=== PATIENT | male | born 1980 | race Caucasian/White ===

== ENCOUNTER 2017-01-20 18:05 | Emergency (ER) | payer OTHER ==
[2017-01-20 18:22] VITALS: BP 130/86; PULSE 94; RESP 18; TEMP 98.2
--- NOTE | 2017-01-20 18:48 | XR ---
EXAMINATION TYPE: XR hand complete RT DATE OF EXAM: 01/20/2017 CLINICAL HISTORY: pain TECHNIQUE: Frontal, lateral and oblique images of the right hand are obtained. COMPARISON: None. FINDINGS: There is no acute fracture/dislocation evident. The joint spaces appear within normal limi ts. The overlying soft tissue fails to demonstrate evidence for radiopaque foreign body. IMPRESSION: There is no acute fracture or dislocation ICD 10 NO FRACTURE, INITIAL EVALUATION
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
--- NOTE | 2017-01-21 07:09 | CDI ---
Documentation Clarification OP Dear Eloy King PA-C Please do addendum to ED report for missing Physical examination. Thank you, Rosaline Ayala Utility Hand If you have any questions, please contact Warehouse Operations Associate at [phone] [facility]
== END 2017-01-20 19:36 | disposition home or self-care (01) ==
LOC: EC 18:05
DX: S00.81XA Abrasion of other part of head, initial encounter (principal); Z86.14 Personal history of Methicillin resistant Staphylococcus aureus infection; F17.200 Nicotine dependence, unspecified, uncomplicated; Y04.2XXA Assault by strike against or bumped into by another person, initial encounter
CPT/HCPCS: 70450; 70486; 72125; 99285

== ENCOUNTER 2022-02-19 20:06 | Inpatient (IN) | payer MEDICAID, OTHER ==
[2022-02-19 21:59] LABS: Basophils # (A) 0.1 k/uL (0-0.2); Basophils % (A) 1 %; Eosinophils # (A) 0.1 k/uL (0-0.7); Eosinophils % (A) 2 %; HCT 41.8 % (39.0-53.0); HGB 14.4 gm/dL (13.0-17.5); Lymphocytes # (A) 1.7 k/uL (1.0-4.8); Lymphocytes % (A) 36 %; MCH 35.5 pg (25.0-35.0); MCHC 34.4 g/dL (31.0-37.0); MCV 103.1 fL (80.0-100.0); Macrocytosis Slight; Mean Platelet Volume 8.1; Monocytes # (A) 0.2 k/uL (0-1.0); Monocytes % (A) 4 %; Neutrophils # (A) 2.6 k/uL (1.3-7.7); Neutrophils % (A) 55 %; Platelet Count 132 k/uL (150-450); RBC 4.05 m/uL (4.30-5.90); RDW 12.5 % (11.5-15.5); WBC 4.8 k/uL (3.8-10.6)
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
[2022-02-19 22:23] LABS: ALT 72 U/L (4-49); AST 79 U/L (17-59); African American GFR (CKD) >90 (>60 ml/min/1.73 sqM); Albumin 4.9 g/dL (3.5-5.0); Alkaline Phosphatase 67 U/L (38-126); Anion Gap 14 mmol/L; Blood Urea Nitrogen 16 mg/dL (9-20); Calcium 8.6 mg/dL (8.4-10.2); Carbon Dioxide 23 mmol/L (22-30); Chloride 108 mmol/L (98-107); Glucose 100 mg/dL (74-99); Non-African American GFR(CKD) >90 (>60 ml/min/1.73 sqM); Potassium 4.3 mmol/L (3.5-5.1); Sodium 145 mmol/L (137-145); Total Bilirubin 0.4 mg/dL (0.2-1.3); Total Protein 7.5 g/dL (6.3-8.2)
[2022-02-19 22:47] LABS: Alcohol 458 mg/dL
[2022-02-19 23:39] LABS: Acetaminophen <10.0 ug/mL; Salicylate <1.0 mg/dL
[2022-02-20] MEDS ORDERED: LORazepam 0.5 MG TAB PO PRN (12:23)
[2022-02-20] MEDS ORDERED: THIAMINE 100 MG/ML 2 ML VIAL IM STA (12:23)
[2022-02-20] MEDS ORDERED: LORazepam 1 MG TAB PO PRN ×2 (12:23→14:39)
[2022-02-20] MEDS: LORazepam 1 MG TAB PO PRN ×2 (17:35→21:31)
[2022-02-20] MEDS ORDERED: ACETAMINOPHEN TAB 325 MG TAB PO PRN (19:32)
[2022-02-20] MEDS ORDERED: MAG HYDROX/AL HYDROX/SIMETH 30 ML CUP PO PRN (19:32)
[2022-02-20] MEDS ORDERED: HALOPERIDOL LACTATE 5 MG/ML 1 ML VIAL IM PRN (19:32)
[2022-02-20] MEDS ORDERED: MAGNESIUM HYDROXIDE 2,400 MG/10 ML CUP PO PRN (19:32)
[2022-02-20] MEDS ORDERED: LORazepam 1 MG/0.5 ML VIAL IM PRN (19:36)
[2022-02-20] MEDS ORDERED: haloperidoL 5 MG TAB PO PRN (19:37)
[2022-02-20] MEDS ORDERED: NAPROXEN 250 MG TAB PO PRN (19:39)
[2022-02-20] MEDS: chlordiazePOXIDE 25 MG CAP PO SCH (21:31)
[2022-02-21] MEDS: LOSARTAN 50 MG TAB PO SCH (10:49)
[2022-02-21] MEDS: chlordiazePOXIDE 25 MG CAP PO SCH ×3 (10:49→20:02)
[2022-02-21] MEDS: NICOTINE 14MG/24HR PATCH TRANSDERM SCH (10:49)
[2022-02-21] MEDS: THIAMINE 100 MG TAB PO SCH (10:49)
[2022-02-21] MEDS: BACLOFEN 10 MG TAB PO PRN (15:31)
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
[2022-02-21] MEDS: MIRTAZAPINE 15 MG TAB PO SCH (20:02)
[2022-02-22] MEDS: LORazepam 1 MG TAB PO PRN ×3 (02:42→21:01)
[2022-02-22] MEDS: LOSARTAN 50 MG TAB PO SCH (09:21)
[2022-02-22] MEDS: THIAMINE 100 MG TAB PO SCH (09:21)
[2022-02-22] MEDS: BACLOFEN 10 MG TAB PO PRN (09:21)
[2022-02-22] MEDS: chlordiazePOXIDE 25 MG CAP PO SCH ×3 (09:21→20:13)
[2022-02-22] MEDS: NICOTINE 14MG/24HR PATCH TRANSDERM SCH (09:21)
--- NOTE | 2022-02-22 15:00 | P.MDCNMH ---
History of Present Illness H&P Date: 02/21/22 Chief Complaint: Suicidal ideation Patient is a 42-year-old male with a known history of hypertension, borderline personality disorder and ADHD and daily alcohol use about 3-4 beers and daily smoking 1 pack per day was brought to ER, he was petitioned by his . Apparently patient has been drinking more yesterday and concerned about harming himself. Patient was petitioned by his and was brought to the hospital. Otherwise patient denied any complaints of chest pain or shortness of breath. No nausea vomiting or abdominal pain or diarrhea. No cough or sputum p roduction. Denied any recent illnesses. Laboratory data showed WBC 4.8, hemoglobin 14.4 and platelets 132 Sodium 140, Potassium 4.3 chloride 108 bicarb is 23 BUN 16 and creatinine 0.71, AST 17 ALT 72 alk phos 67 and serum alcohol level is 458 Roberts virus PCR not detected. Review of Systems Constitutional: Patient denies any fever or chills . No generalized weakness or weight loss. Abdomen: Patient denied nausea vomiting and diarrhea and abdominal pain. Cardiovascular: Patient denies any chest pain or short of breath no palpitations. Respiratory: patient denied any cough is from production. No shortness of breath Neurologic: Patient denied any numbness or tingling headache. Musculoskeletal: Patient denies any complaints of joint swelling or deformity. Skin: Negative Psychiatric: Negative Endocrine: No heat or cold intolerance. No recent weight gain. Genitourinary: No dysuria or hematuria. All other 14 point ROS negative except the above Past Medical History Additional Past Medical History / Comment(s): BORDERLINE PERSONALITY DISORDER, ADHD History of Any Multi-Drug Resistant Organisms: None Reported, MRSA MDRO Source:: R hand Past Surgical History: Orthopedic Surgery Additional Past Surgical History / Comment(s): lap knee surgery on right knee Past Anesthesia/Blood Transfusion Reactions: No Reported Reaction Past Psychological History: ADD/ADHD, Anxiety Past Alcohol Use History: Daily Past Drug Use History: None Reported - Past Family History Mother Family Medical History: CVA/TIA, Hypertension Medications and Allergies Home Medications Medication Instructions Recorded Confirmed Type Baclofen [Lioresal] 10 mg PO TID PRN 02/20/22 02/20/22 History Losartan Potassium [Cozaar] 100 mg PO DAILY 02/20/22 02/20/22 History Naproxen [Naprosyn] 500 mg PO BID PRN 02/20/22 02/20/22 History Vitamin D3 1250mcg 1,250 mcg PO QMONTHLY 02/20/22 02/20/22 History Allergies Allergy/AdvReac Type Severity Reaction Status Date / Time No Known Allergies Allergy Verified 02/20/22 10:14 Physical Exam Vitals: Vital Signs Temp Pulse Resp BP Pulse Ox 02/21/22 09:49 98.4 F 63 131/76 98 02/20/22 20:29 98 F 95 18 186/86 97 Intake and Output 02/20/22 02/21/22 02/21/22 22:59 06:59 14:59 Other: Weight 62.596 kg PHYSICAL EXAMINATION: Patient is lying in the bed comfortably, no acute distress, awake alert and oriented.. HEENT: Normocephalic. Neck is supple. Pupils reactive. Nostrils clear. Oral cavity is moist. Neck reveals no JVD, carotid bruits, or thyromegaly. CHEST EXAMINATION: Trachea is central. Symmetrical expansion. Lung gilmore clear to auscultation and percussion. CARDIAC: Normal S1, S2 with no gallops. No murmurs ABDOMEN: Soft. Bowel sounds normal. No organomegaly. No abdominal bruits. Extremities: reveal no edema. No clubbing or cyanosis Neurologically awake, alert, oriented x3 with well-coordinated movements. No focal deficits noted Skin: No rash or skin lesions. Psychiatric: Coperative. Nonsuicidal Musculoskeletal: No joint swelling or deformity. Normal range of motion. Cranial Nerve Examination - Cranial Nerves Cranial Nerve I- Olfactory: Intact Cranial Nerve II- Optic: Intact Cranial Nerve III- Oculomotor: Intact Cranial Nerve IV- Trochlear: Intact Cranial Nerve V- Trigeminal: Intact Cranial Nerve - Abducens: Intact Cranial Nerve VII- Facial: Intact Cranial Nerve VIII- Auditory: Intact Cranial Nerve IX- Glossopharyngeal: Intact Cranial Nerve X- Vagus: Intact Cranial Nerve XI- Accessory: Intact Cranial Nerve XII- Hypoglossal: Intact Results CBC & Chem 7: 02/19/22 21:36 02/19/22 21:36 Assessment and Plan Assessment: Depression with suicidal ideation. Possible alcohol induced Acute alcohol intoxication and daily alcohol use Ongoing nicotine addiction History of cocaine use Hypertension. Controlled with medication. DVT prophylaxis with atrial fibrillation Plan: Patient will be continued on blood pressure medication losartan 100 mg daily. Continue with current psychiatric management and plan. Continue with alcohol withdrawal protocol and follow closely. Smoking cessation and alcohol abstinence has been counseled extensively. We'll continue to follow closely and further recommendations based on the clinical course. Thank you for your consult. Time with Patient: Greater than 30
[2022-02-22] MEDS: MIRTAZAPINE 15 MG TAB PO SCH (20:13)
[2022-02-22] MEDS ORDERED: MIRTAZAPINE 15 MG TAB PO STA (20:50)
--- NOTE | 2022-02-22 23:02 | P.PN ---
Progress Note - Text Progress Note Date: 02/22/22 Interval history: Patient was seen wandering the hallways and was directable and agreeable to speak with marine underwriter. He reports improved mood today, but reports fair sleep with difficulty falling and staying asleep. His alcohol withdrawal symptoms are controlled with Lirbium taper. Vitals reviewed and are stable. At this time patient denies any suicidal or homicidal ideation, intent or plan. Denies any auditory or visual hallucinations. Patient denies any side effects from the medications and has been compliant with meds. He is attending groups and participating. Mental status exam: General Appearance: Patient appears to be older than stated age. Patient appears to have multiple tattoos, fair hygiene. Behavior: Patient is calm without any agitated behavior. Speech: Patient's speech is fluent and non-pressured. Mood/Affect: Patient reports their mood is "great", affect is euthymic and stable. Suicidality/Homicidality: Patient denies having any homicidal ideation intent or plan. Denies any suicidal ideation, intent or plan. Perceptions: Patient denies any visual hallucinations and denies any auditory hallucinations. Though content/process: There is no evidence of any delusional thought content and thought process is linear and goal-directed. Memory and concentration: AOX3, grossly intact for the purposes of this session. Judgment and insight: improving mildly Assessment/Plan: Continue with current diagnosis. Patient continues to meet criteria for [facility] for symptom stabilization and safety. Remeron increased to 15 mg QHS starting tonight. He had already taken 7.5 mg and was given another 7.5 mg to make 15 mg tonight. Monitor for medication compliance and for any psychotropic medication side effects. Will continue to monitor ongoing response to treatment. Encouraged participation in milieu.
[2022-02-23] MEDS: LORazepam 1 MG TAB PO PRN (06:50)
[2022-02-23] MEDS: chlordiazePOXIDE 25 MG CAP PO SCH ×3 (08:39→20:49)
[2022-02-23] MEDS: THIAMINE 100 MG TAB PO SCH (08:39)
[2022-02-23] MEDS: LOSARTAN 50 MG TAB PO SCH (08:39)
[2022-02-23] MEDS: NICOTINE 14MG/24HR PATCH TRANSDERM SCH (08:40)
--- NOTE | 2022-02-23 13:29 | P.PN ---
Progress Note - Text Progress Note Date: 02/23/22 S&O: Patient was seen in rounds. He was admitted on 01/21/2022 since he was thought to be suicidal and depressed. Patient said he has been binge drinking and recently was drinking and playing his video games in his room. He said his thought he was drinking too much and a suicide risk and called the police who brought him to the ER. Patient insists that he is not suicidal, does not want to and wants to return to live with his . 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 He denies any previous psychiatric treatment. His psychiatric H&P shows the diagnosis of unspecified depressive disorder, rule out MDD versus alcohol-usman yesenia depressive disorder, alcohol use disorder severe with withdrawal cocaine use disorder in remission and tobacco use disorder. Patient said he does not do any drugs. This is a right ambulatory male with adequate hygiene he has multiple tattoos. He does not show any psychomotor agitation or retardation. His speech is spontaneous relevant and goal-directed. His mood is euthymic to cheerful and he became teary eyed when he was saying how much he misses his and wants to be with her. He said his has become his chief quality officer in a sarcastic way and he will stop drinking. He denies hallucinations and delusional thinking. He denies suicide and homicide thoughts and insists that he was never suicidal. His sensorium is clear A: Alcohol use disorder severe. P: Continue current medication for withdrawal symptoms therapy and supervision. His discharge plan will be discussed with him tomorrow's treatment team meeting.
[2022-02-23] MEDS ORDERED: MIRTAZAPINE 15 MG TAB PO SCH (21:00)
[2022-02-24 06:59] VITALS: BP 109/63; PULSE 58; RESP 14; TEMP 97.5
[2022-02-24] MEDS: NICOTINE 14MG/24HR PATCH TRANSDERM SCH (08:36)
[2022-02-24] MEDS: THIAMINE 100 MG TAB PO SCH (08:36)
[2022-02-24] MEDS: chlordiazePOXIDE 25 MG CAP PO SCH (08:36)
[2022-02-24] MEDS: LOSARTAN 50 MG TAB PO SCH (08:37)
--- NOTE | 2022-02-24 11:20 | P.DS ---
Providers Date of admission: 02/20/22 19:30 Expected date of discharge: 02/24/22 Attending physician: Hola Oro MD Consults: 02/20/22 20:33 Consult Physician Routine Consulting Provider: Orestes Diehl Consult Reason/Comments: h&P Do you want consulting provider notified?: Yes Primary care physician: Dallas Dean - Discharge Diagnosis(es) (1) Alcohol intoxication Current Visit: Yes Status: Acute Priority: Medium (2) Mood disorder Current Visit: Yes Status: Acute Priority: High Hospital Course: Patient had his psychiatric H&P done by and general medical H&P done by on 02/21/2022. After psychiatric examination patient was started on alcohol withdrawal protocol and on Remeron for depression. He also received individual therapy group therapy occupational and recreational therapy. He stated well on these and was feeling better. He did not have any withdrawal symptoms his mood got better and did not have any suicidal thoughts. He agreed to go back and stay with his not to drink alcohol anymore and continue with his job. He did not have any adverse effects from the medication he was taking. His progress and treatment plans were reviewed by the treatment team this morning and it was agreed to discharge him today. Assessment: 1. Mood disorder unspecified 2. Alcohol intoxication with severe use disorder. 3. History of sciatica. 4. Hypertension. 5. Vitamin D deficiency. Patient Condition at Discharge: Good Plan - Discharge Summary New Discharge Prescriptions: New Ergocalciferol [Vitamin D2 (1250 Mcg = 85192 Iu)] 1,250 mcg PO QMONTHLY 30 Days #1 cap Mag Hydrox/Al Hydrox/Simeth [Maalox] 30 ml PO Q4HR PRN ml PRN Reason: Gi Upset Naproxen [Naprosyn] 500 mg PO BID PRN tab PRN Reason: Pain Mirtazapine [Remeron] 15 mg PO HS 30 Days #30 tab Acetaminophen Tab [Tylenol] 650 mg PO Q4HR PRN tab PRN Reason: Pain/Discomfort Continue Losartan Potassium [Cozaar] 100 mg PO DAILY 30 Days #30 tab Naproxen [Naprosyn] 500 mg PO BID PRN 30 Days #50 tab PRN Reason: Pain Discontinued Baclofen [Lioresal] 10 mg PO TID PRN PRN Reason: Muscle Spasm Vitamin D3 1250mcg 1,250 mcg PO QMONTHLY Discharge Medication List Acetaminophen Tab [Tylenol] 650 mg PO Q4HR PRN tab 02/24/22 [Rx] Ergocalciferol [Vitamin D2 (1250 Mcg = 94464 Iu)] 1,250 mcg PO QMONTHLY 30 Days #1 cap 02/24/22 [Rx] Losartan Potassium [Cozaar] 100 mg PO DAILY 30 Days #30 tab 02/24/22 [Rx] Mag Hydrox/Al Hydrox/Simeth [Maalox] 30 ml PO Q4HR PRN ml 02/24/22 [Rx] Mirtazapine [Remeron] 15 mg PO HS 30 Days #30 tab 02/24/22 [Rx] Naproxen [Naprosyn] 500 mg PO BID PRN tab 02/24/22 [Rx] Naproxen [Naprosyn] 500 mg PO BID PRN 30 Days #50 tab 02/24/22 [Rx] Follow up Appointment(s)/Referral(s): Jermaine Haynes MD [Primary Care Provider] - 1-2 days
--- NOTE | 2022-02-25 14:55 | P.DS ---
Providers Date of admission: 02/20/22 19:30 Attending physician: Hola Oro MD Consults: 02/20/22 20:33 Consult Physician Routine Consulting Provider: Orestes Diehl Consult Reason/Comments: h&P Do you want consulting provider notified?: Yes Primary care physician: Dallas Archibald Charbal - Discharge Diagnosis(es) (1) Mood disorder Status: Acute Priority: High (2) Alcohol intoxication Status: Acute Priority: Medium Assessment: 1. Mood disorder unspecified 2. Alcohol intoxication with severe use disorder. 3. History of sciatica. 4. Hypertension. 5. Vitamin D deficiency. Patient Condition at Discharge: Good Plan - Discharge Summary New Discharge Prescriptions: New Ergocalciferol [Vitamin D2 (1250 Mcg = 80264 Iu)] 1,250 mcg PO QMONTHLY 30 Days #1 cap Mag Hydrox/Al Hydrox/Simeth [Maalox] 30 ml PO Q4HR PRN ml PRN Reason: Gi Upset Naproxen [Naprosyn] 500 mg PO BID PRN tab PRN Reason: Pain Mirtazapine [Remeron] 15 mg PO HS 30 Days #30 tab Acetaminophen Tab [Tylenol] 650 mg PO Q4HR PRN tab PRN Reason: Pain/Discomfort Continue Losartan Potassium [Cozaar] 100 mg PO DAILY 30 Days #30 tab Naproxen [Naprosyn] 500 mg PO BID PRN 30 Days #50 tab PRN Reason: Pain Discontinued Baclofen [Lioresal] 10 mg PO TID PRN PRN Reason: Muscle Spasm Vitamin D3 1250mcg 1,250 mcg PO QMONTHLY Discharge Medication List Acetaminophen Tab [Tylenol] 650 mg PO Q4HR PRN tab 02/24/22 [Rx] Ergocalciferol [Vitamin D2 (1250 Mcg = 20418 Iu)] 1,250 mcg PO QMONTHLY 30 Days #1 cap 02/24/22 [Rx] Losartan Potassium [Cozaar] 100 mg PO DAILY 30 Days #30 tab 02/24/22 [Rx] Mag Hydrox/Al Hydrox/Simeth [Maalox] 30 ml PO Q4HR PRN ml 02/24/22 [Rx] Mirtazapine [Remeron] 15 mg PO HS 30 Days #30 tab 02/24/22 [Rx] Naproxen [Naprosyn] 500 mg PO BID PRN tab 02/24/22 [Rx] Naproxen [Naprosyn] 500 mg PO BID PRN 30 Days #50 tab 02/24/22 [Rx] Follow up Appointment(s)/Referral(s): [facility] [Outside] - 03/04/22 2:00 pm (Shama Moon 14:00 for paperwork 14:30 with therapist for 1 hour ) Jermaine Haynes MD [Primary Care Provider] - 1-2 days Patient Instructions/Handouts: Depression (DC), Alcohol Intoxication (DC) Discharge Disposition: HOME SELF-CARE
[2022-03-03] MEDS ORDERED: ERGOCALCIFEROL 1,250 MCG (50,000 IU) CAPSULE PO SCH (09:00)
== END 2022-02-24 12:36 | disposition home or self-care (01) | DRG 885 ==
LOC: EC 20:06 → 3MHU 02-20 19:30
PROVIDERS: ADMIT Psychiatry & Neurology Psychiatry; ATTEND Psychiatry & Neurology Psychiatry
DX: F39 Unspecified mood [affective] disorder (principal); F10.239 Alcohol dependence with withdrawal, unspecified; F10.229 Alcohol dependence with intoxication, unspecified; E55.9 Vitamin D deficiency, unspecified; F14.11 Cocaine abuse, in remission; F17.200 Nicotine dependence, unspecified, uncomplicated; F32.A Depression, unspecified; F60.3 Borderline personality disorder; I10 Essential (primary) hypertension; Z63.4 Disappearance and death of family member; Z20.822 Contact with and (suspected) exposure to COVID-19
CPT/HCPCS: 36415; 80053; 80143; 80179; 80320; 82075; 85025; 87635; 96372; 99285

== ENCOUNTER 2022-11-27 22:21 | Emergency (ER) | payer OTHER ==
[2022-11-28 06:37] VITALS: TEMP 97.7
--- NOTE | 2022-11-28 13:55 | ED ---
Psych HPI - General Chief Complaint: Psychiatric Symptoms Stated Complaint: Mental Health Time Seen by Provider: 11/27/22 22:27 Source: patient, EMS, RN notes reviewed Mode of arrival: EMS - History of Present Illness Initial Comments: A 42-year-old male who was brought in by police last night under petition after admittedly drinking too much alcohol he did cut himself on the left side of his neck superficially with a knife. He states he was is not suicidal or homicidal does not wish to hurt himself he does state his last tetanus shot was within 10 years. Patient was previously seen and evaluated by Dr. Law upon the patient's arrival. Patient did rest comfortably throughout the health information director and afternoon. He was evaluated by psychiatric service. MD Complaint: other - Related Data Home Medications Medication Instructions Recorded Confirmed Albuterol Sulfate [Ventolin HFA] 2 puff INHALATION RT-QID PRN 11/28/22 11/28/22 Budesonide/Formoterol Fumarate 2 puff INHALATION RT-BID 11/28/22 11/28/22 [Symbicort 160-4.5 Mcg Inhaler] Chlorhexidine Gluconate [Periogard] 15 ml PO BID 11/28/22 11/28/22 Cholecalciferol (Vitamin D3) 1,250 mcg PO QMONTHLY 11/28/22 11/28/22 [Vitamin D3] HYDROcodone/APAP 5-325MG [[place] 1 tab PO Q6HR PRN 11/28/22 11/28/22 5-325] traZODone HCL [Desyrel] 50 - 100 mg PO HS PRN 11/28/22 11/28/22 Previous Rx's Medication Instructions Recorded Losartan Potassium [Cozaar] 100 mg PO DAILY 30 Days #30 tab 02/24/22 Allergies Allergy/AdvReac Type Severity Reaction Status Date / Time No Known Allergies Allergy Verified 11/28/22 11:38 Review of Systems ROS Statement: Those systems with pertinent positive or pertinent negative responses have been documented in the HPI. ROS Other: All systems not noted in ROS Statement are negative. Past Medical History Additional Past Medical History / Comment(s): BORDERLINE PERSONALITY DISORDER, ADHD History of Any Multi-Drug Resistant Organisms: None Reported, MRSA MDRO Source:: R hand Past Surgical History: Orthopedic Surgery Additional Past Surgical History / Comment(s): lap knee surgery on right knee Past Anesthesia/Blood Transfusion Reactions: No Reported Reaction Past Psychological History: ADD/ADHD, Anxiety Smoking Status: Current every day smoker, Heavy tobacco smoker Past Alcohol Use History: Daily Past Drug Use History: None Reported - Past Family History Mother Family Medical History: CVA/TIA, Hypertension General Exam - General Exam Comments Initial Comments: This is a well-developed well-nourished awake alert oriented 4 male General appearance: alert, in no apparent distress Head exam: Present: atraumatic, normocephalic, normal inspection Eye exam: Present: normal appearance, PERRL, EOMI. Absent: scleral icterus, conjunctival injection, periorbital swelling ENT exam: Present: normal exam, mucous membranes moist Neck exam: Present: other (Superficial abrasion seen on the left mid to anterior neck was approximately 10 cm long very superficial the other ones about 3 cm long superficial no active bleeding no suture repair indicated no stridor JVD or bruits). Absent: tenderness, meningismus, lymphadenopathy Respiratory exam: Present: normal lung sounds bilaterally. Absent: respiratory distress, wheezes, rales, rhonchi, stridor Cardiovascular Exam: Present: regular rate, normal rhythm, normal heart sounds. Absent: systolic murmur, diastolic murmur, rubs, gallop, clicks GI/Abdominal exam: Present: soft, normal bowel sounds. Absent: distended, tenderness, guarding, rebound, rigid Extremities exam: Present: normal inspection, full ROM, normal capillary refill. Absent: tenderness, pedal edema, joint swelling, calf tenderness Back exam: Present: normal inspection Neurological exam: Present: alert, oriented X3, CN II-XII intact Psychiatric exam: Present: normal affect, normal mood Skin exam: Present: warm, dry, intact, normal color. Absent: rash Course Vital Signs 11/27/22 11/28/22 22:23 06:00 Temperature 98.2 F 97.7 F Pulse Rate 92 74 Respiratory 18 17 Rate Blood Pressure 167/99 114/59 O2 Sat by Pulse 100 98 Oximetry Medical Decision Making - Medical Decision Making The patient was found initially did have an alcohol level of 272. History of being be sober he did evaluated by EPS and found not to be wrist himself or anyone else he will be discharged with referral to a treatment facility in [place].Was pt. sent in by a medical professional or institution ([facility], [facility], urgent care, hospital, or [facility]...) When possible be specific @ -No Did you speak to anyone other than the patient for history (EMS, parent, family, police, friend...)? What history was obtained from this source @ -No Did you review nursing and triage notes (agree or disagree)? Why? @ -I reviewed and agree with nursing and triage notes Were old charts reviewed (outside hosp., previous admission, EMS record, old EKG, old radiological studies, urgent care reports/EKG's, [facility] records)? Report findings @ -No old charts were reviewed Differential Diagnosis (chest pain, altered mental status, abdominal pain women, abdominal pain men, vaginal bleeding, weakness, fever, dyspnea, syncope, headache, dizziness, GI bleed, back pain, seizure, CVA, palpatations, mental health, musculoskeletal)? @ -Alcohol intoxication, adjustment disorder EKG interpreted by me (3pts min.). @ -As above X-rays interpreted by me (1pt min.). @ -None done CT interpreted by me (1pt min.). @ -None done U/S interpreted by me (1pt. min.). @ -None done What testing was considered but not performed or refused? (CT, X-rays, U/S, labs)? Why? @ -None What meds were considered but not given or refused? Why? @ -None Did you discuss the management of the patient with other professionals (professionals i.e. [facility], [facility], lab, RT, psych nurse, geriatric social worker, icu specialist, teacher, corporate banking officer, immigration case worker)? Give summary @ -PS service Was smoking cessation discussed for >3mins.? @ -No Was critical care preformed (if so, how long)? @ -No Were there social determinants of health that impacted care today? How? (Homelessness, low income, unemployed, alcoholism, drug addiction, transportation, low edu. Level, literacy, decrease access to med. care, [place] [facility], rehab)? @ -No Was there de-escalation of care discussed even if they declined (Discuss DNR or withdrawal of care, Hospice)? DNR status @ -No What co-morbidities impacted this encounter? (DM, HTN, Smoking, COPD, CAD, Cancer, CVA, ARF, Chemo, Hep., AIDS, mental health diagnosis, sleep apnea, morbid obesity)? @ -None Was patient admitted / discharged? Hospital course, mention meds given and route, prescriptions, significant lab abnormalities, going to OR and other pertinent info. @ -hospital course it was discharged with outpatient referrals for alcohol treatment. Patient is in agreement with this he is not a risk to himself or anyone else at this time. Undiagnosed new problem with uncertain prognosis? @ -No Drug Therapy requiring intensive monitoring for toxicity (Heparin, Nitro, Insulin, Cardizem)? @ -No Were any procedures done? @ -No Diagnosis/symptom? @ -Alcohol intoxication, alcohol dependence, facial abrasion to the neck, adjustment disorder Acute, or Chronic, or Acute on Chronic? @ -Acute on chronic Uncomplicated (without systemic symptoms) or Complicated (systemic symptoms)? @ -Complicated Side effects of treatment? @ -No Exacerbation, Progression, or Severe Exacerbation? @ -No Poses a threat to life or bodily function? How? (Chest pain, [place], DC, pneumonia, PE, COPD, DKA, ARF, appy, cholecystitis, CVA, Diverticulitis, Homicidal, Suicidal, threat to staff... and all critical care pts) @ -No Disposition Clinical Impression: Alcohol intoxication, Adjustment disorder, Abrasion Disposition: HOME SELF-CARE Condition: Good Instructions (If sedation given, give patient instructions): Abuse of Alcohol (ED), Alcohol Intoxication (ED), Alcohol Dependence (ED), Mood Disorders (ED) Is patient prescribed a controlled substance at d/c from ED?: No Referrals: Jesse Pitt MD [Primary Care Provider] - 1-2 days Decision Date: 11/28/22 Decision Time: 13:55
[2022-11-28 14:04] VITALS: BP 134/87; PULSE 84; RESP 18
== END 2022-11-28 14:04 | disposition home or self-care (01) ==
LOC: EC 22:21
DX: S10.91XA Abrasion of unspecified part of neck, initial encounter (principal); F10.229 Alcohol dependence with intoxication, unspecified; F43.20 Adjustment disorder, unspecified; F41.9 Anxiety disorder, unspecified; F90.9 Attention-deficit hyperactivity disorder, unspecified type; F17.200 Nicotine dependence, unspecified, uncomplicated; Y90.8 Blood alcohol level of 240 mg/100 ml or more; Z79.899 Other long term (current) drug therapy; W26.0XXA Contact with knife, initial encounter
CPT/HCPCS: 82075; 99285